=== PATIENT | female | born 1945 | race Caucasian/White ===

== ENCOUNTER 2016-12-21 11:40 | Emergency (ER) | payer MEDICARE, OTHER ==
[2016-12-21] MEDS ORDERED: Sodium Chloride 0.9% 1,000 ML IV SCH (12:00)
[2016-12-21] MEDS ORDERED: Atropine 0.1 MG/ML 10 ML Syringe IVPUSH ONE (12:34)
[2016-12-21] MEDS ORDERED: Aspirin 81 MG Tab.Chew PO ONE (12:40)
[2016-12-21 12:43] VITALS: BP 79/48
--- NOTE | 2016-12-22 09:53 | ER ---
DATE SEEN: 12/21/2016 CHIEF COMPLAINT: Chest pain. HISTORY OF PRESENT ILLNESS: She denies having chest pain. She had some arm pain, left arm discomfort. Onset today. She had pressure in her arm this afternoon. No unusual activity, lifting, or exertion. Denies shortness of breath, chest heaviness, chest pressure, or chest ache. No neck pain, jaw pain back pain, or interscapular pain. She denies other associated symptoms, gastrointestinal reflux, hiatus hernia, gallbladder disease, fatty food ingestion, shortness of breath, cough, dyspnea on exertion, neck pain, arm pain, back pain, herpes, fevers, chills, or productive cough. ALLERGIES: Aspirin. MEDICATIONS: 1. Trazodone. 2. Systane Balance in the eyes. 3. Oxybutynin 5 mg daily. 4. Omeprazole 20 mg daily. 5. Multivitamin. 6. Metoclopramide q.i.d. p.r.n. 7. Meloxicam 7.5 mg daily. 8. Fluticasone propionate nasal spray for seasonal allergies. 9. Calcium carbonate with vitamin D. 10.Acetaminophen. REVIEW OF SYSTEMS: Negative except for noted above. Medication in the past, she has used Prilosec, and uses every other day, not daily. Other review of systems 2, para 2-0-0-2, and edentulous. No history of diabetes, heart disease, high blood pressure, asthma, or thyroid disease. PAST SURGICAL HISTORY: Cataracts, cholecystectomy, tubal ligation, surgery first hallux, bilateral total knee arthroplasty. PHYSICAL EXAMINATION: VITAL SIGNS: Blood pressure 79/48, heart rate 48 to 56, respirations 16, oxygen saturation 100%. HEENT: Patient is edentulous. Has angular orofacial musculature secondary to being edentulous. TMs negative. Pharynx, moist mucosa. NECK: Supple. No thyromegaly. No masses. No bruits in neck. No transmitted murmurs in the chest to the neck. LUNGS: Clear to auscultation without rales, rhonchi, or wheezes. HEART: S1, S2. No irregular rate or rhythm. ABDOMEN: Soft. No guarding. No abdominal discomfort. Increased abdominal girth noted. Moderate distention. MUSCULOSKELETAL: No tenderness to the legs. Range of motion is decreased in hips and knees (she had previous bilateral total knee arthroplasty.) NEURO: Deep tendon reflexes absent in upper and lower extremities. Cranial nerves 2 through 12 intact. Oriented x3. Strength intact. Gait appropriate. Thought content is appropriate. Mental status is normal. EKG: Bradycardia. Heart rate 54, and poor R-wave progression across the anterior precordials. No ST elevation. Troponin is less than 0.01 x2, two hours apart. LABORATORY STUDIES: Hemoglobin 12.5, white count 5700, PMNs 52, lymphocytes 39 and D-dimer trace elevated, but not abnormal for age (425) and complete metabolic panel is normal. Troponin less than 0.01 x2, two hours apart. Alkaline phosphatase normal. Urinalysis is normal with a few bacteria and few squamous cells. IMAGING: Chest x-ray is negative except for mild cardiac enlargement - borderline cardiomegaly. No infiltrate noted. There is a lobular heart. Has less angular features. ASSESSMENT: 1. Chest pain, etiology indeterminate. 2. Nonspecific chest pain. 3. No evidence for myocardial infarction or pneumonia or infection. The patient has irregular heartbeat and etiology indeterminate. 4. Transient low blood pressure, she received a liter of fluid. Pressures came back nicely to 116/71-75. She was dehydrated. 5. Obesity. 6. Edentulous. 7. Status post tubal ligation, cholecystectomy, bilateral cataract surgery, hallux surgery, joint abnormality surgery, and bilateral total knee arthroplasties. PLAN: The patient is dismissed to follow up with doctor in a week. She is advised to walk, continue walking and return to the ED earlier if has more chest discomfort or pain. /[id number] PRAKASH/ELENA ACEVES
--- NOTE | 2016-12-25 14:03 | CR ---
INDICATION: Bradycardia, lightheaded. CHEST: An AP upright view of the chest was obtained portable, 12/21/2016, and compared with 02/15/2013 PA view and an AP view from 07/08/2012. The heart size is unchanged from 07/08/2012. The aorta is somewhat tortuous with some minimal calcification suggested in the arch area. Overlying EKG leads are noted. No active infiltrate or effusion was identified. IMPRESSION: 1. Stable chest. No acute process. 2. Probable ASHD with mild cardiomegaly. MTDD
== END 2016-12-21 15:25 | disposition home or self-care (01) ==
LOC: FB.ED 11:40
DX: R07.9 Chest pain, unspecified (principal); K06.9 Disorder of gingiva and edentulous alveolar ridge, unspecified; R03.1 Nonspecific low blood-pressure reading; E66.9 Obesity, unspecified; Z68.29 Body mass index [BMI] 29.0-29.9, adult; Z90.49 Acquired absence of other specified parts of digestive tract; Z98.51 Tubal ligation status; Z98.49 Cataract extraction status, unspecified eye; Z96.651 Presence of right artificial knee joint; Z96.652 Presence of left artificial knee joint; Z98.890 Other specified postprocedural states; Z88.8 Allergy status to other drugs, medicaments and biological substances; Z79.899 Other long term (current) drug therapy
CPT/HCPCS: 36415; 71010; 80053; 81001; 83880; 84484; 85025; 85379; 85610; 93005; 96361; 96374; 99282; 99285; A9270; J0461; J7040

== ENCOUNTER 2017-01-24 20:21 | Emergency (ER) | payer MEDICARE, OTHER ==
--- NOTE | 2017-01-24 20:31 | EDM.PDOC ---
ED HPI GENERAL MEDICAL PROBLEM - General Stated Complaint: WEAKNESS Time Seen by Provider: 01/24/17 20:21 Source of Information: Reports: Patient, EMS History Limitations: Reports: No Limitations - History of Present Illness INITIAL COMMENTS - FREE TEXT/NARRATIVE: 71 y.o.w.f. with a history of a fib, on Coumadin, came to the ed by EMS due to left arm numbness and pain for a few seconds, starting while working outside. Pt denied c/p dizziness or lightheadedness or any other acute medical issues. BP was 111/87, puls was 112 Irr/irr. Pt had a full cardiac W/U in [place] 3 days ago including cardiac angiogram, Echocardiogram etc which were all neg, as per pt. Onset: Today Onset Date: 01/24/17 Onset Time: 14:00 Duration: Hour(s): Location: Reports: Upper Extremity, Left Quality: Reports: Dull, Other (numb) Improves with: Reports: None Worsens with: Reports: None Context: Reports: Other (h/o a fib) Associated Symptoms: Reports: No Other Symptoms - Related Data Allergies Allergy/AdvReac Type Severity Reaction Status Date / Time aspirin AdvReac Stomach Verified 01/25/17 00:47 Upset Home Meds: Home Meds Calcium Carbonate/Vitamin D3 [Calcium 600 + Vit D 400 Softgl] 600 mg PO BID [History] Fluticasone Propionate 50 mcg NS DAILY 03/31/13 [History] Meloxicam [Meloxicam] 7.5 ampule PO DAILY 03/31/13 [History] Metoclopramide [Reglan] 10 mg PO QID 03/31/13 [History] Multivitamin [Multi Vitamin Daily] 1 each PO DAILY 03/31/13 [History] Omeprazole [Omeprazole] 20 mg PO DAILY PRN 03/31/13 [History] Oxybutynin Chloride [Ditropan Xl] 5 mg PO DAILY 03/31/13 [History] Propylene Glycol [Systane Balance] 1 drop OP BID PRN 03/31/13 [History] Acetaminophen [Tylenol Extra Strength] 1,000 mg PO Q6H PRN 04/27/14 [History] traZODone 100 mg PO BEDTIME 04/27/14 [History] Metoprolol Succinate 25 mg PO DAILY 01/25/17 [History] Warfarin [Coumadin] 5 mg PO DAILY 01/25/17 [History] Past Medical History HEENT History: Reports: Impaired Vision Gastrointestinal History: Reports: Cholelithiasis Genitourinary History: Reports: Urinary Incontinence Other Genitourinary History: takes medication for dribbling RN ONCOLOGY History: Reports: Musculoskeletal History: Reports: Arthritis - Past Surgical History HEENT Surgical History: Reports: Cataract Surgery, Other (See Below) Other HEENT Surgeries/Procedures: bilateral cataracts surgery GI Surgical History: Reports: Cholecystectomy Female Surgical History: Reports: Tubal Ligation Musculoskeletal Surgical History: Reports: Knee Replacement, Other (See Below) Other Musculoskeletal Surgeries/Procedures:: bilateral TKA - one in 08/16, one in 05/16 Social & Family History - Tobacco Use Smoking Status *Q: Never Smoker Second Hand Smoke Exposure: No - Caffeine Use Caffeine Use: Reports: Coffee - Recreational Drug Use Recreational Drug Use: No Drug Use in Last 12 Months: No ED ROS GENERAL - Review of Systems Review Of Systems: See Below Constitutional: Reports: No Symptoms HEENT: Reports: No Symptoms Respiratory: Reports: No Symptoms Cardiovascular: Reports: No Symptoms Endocrine: Reports: No Symptoms GI/Abdominal: Reports: No Symptoms : Reports: No Symptoms Musculoskeletal: Reports: Arm Pain (numbness for 3 sec) Skin: Reports: No Symptoms Neurological: Reports: No Symptoms Psychiatric: Reports: No Symptoms Hematologic/Lymphatic: Reports: No Symptoms Immunologic: Reports: No Symptoms ED EXAM, GENERAL - Physical Exam Exam: See Below Exam Limited By: No Limitations General Appearance: Alert, WD/WN, No Apparent Distress Eye Exam: Bilateral Eye: Normal Inspection Ears: Normal External Exam Ear Exam: Bilateral Ear: Auricle Normal Nose: Normal Inspection, Normal Mucosa Throat/Mouth: Normal Inspection, Normal Lips Head: Atraumatic, Normocephalic Neck: Normal Inspection, Supple, Non-Tender Respiratory/Chest: No Respiratory Distress, Lungs Clear, Normal Breath Sounds Cardiovascular: Normal Peripheral Pulses, Regular Rate, Rhythm, No Edema Peripheral Pulses: 1+: Radial (L), Radial (R) GI/Abdominal: Normal Bowel Sounds, Soft, Non-Tender (Female) Exam: Deferred Rectal (Female) Exam: Deferred Back Exam: Normal Inspection, Full Range of Motion Extremities: Normal Inspection, Normal Range of Motion, Non-Tender, No Pedal Edema, Normal Capillary Refill Neurological: Alert, Oriented, CN II-XII Intact, Normal Cognition, Normal Gait Psychiatric: Normal Affect, Normal Mood Skin Exam: Warm, Dry, Intact Lymphatic: No Adenopathy EKG INTERPRETATION EKG Date: 01/24/17 Time: 20:30 Rhythm: A-Fib Rate (Beats/Min): 112 [place]: LAD-Left [place] Deviation P-Wave: Absent QRS: Normal ST-T: Normal QT: Normal Comparison: NA - No Prior EKG Course - Vital Signs Text/Narrative:: 71 y.o.w.f. with a history of a fib, on Coumadin, came to the ed by EMS due to left arm numbness and pain for a few seconds, starting while working outside. Pt denied c/p dizziness or lightheadedness or any other acute medical issues. BP was 111/87, puls was 112 Irr/irr. Pt had a full cardiac W/U in [place] 3 days ago including cardiac angiogram, Echocardiogram etc which were all neg, as per pt. PE: WNWD WF NAD, numbness subsided Labs: INR 3.72 CBC Nl BUN/Cr ratio elevated Troponin 0.01 imaging: CXR NAD, official report is pending Impression: atypical CP, dehydration, A fib with RVR, Hypertherapeutic INR Reexam: Improved, pt was pain free, no numbness in her usual state of health, requesting to be discharged. HR was 99 -101 on D/C Plan: D/C with instructions, hold coumadin for 1 day,recheck the INR in 3 days. Last Recorded V/S: Last Vital Signs Temp Pulse 113 H 01/24/17 21:16 Resp 12 01/24/17 22:30 BP 126/71 01/24/17 22:30 Pulse Ox 98 01/24/17 22:30 - Orders/Labs/Meds Labs: Laboratory Tests 01/24/17 01/24/17 01/24/17 Range/Units 20:26 20:35 20:35 WBC 6.6 (4.5-12.0) X10-3/uL RBC 4.32 (3.23-5.20) x10(6)uL Hgb 13.0 (11.5-15.5) g/dL Hct 38.2 (30.0-51.3) % MCV 88.5 (80-96) fL MCH 30.1 (27.7-33.6) pg MCHC 34.1 (32.2-35.4) g/dL RDW 13.5 (11.5-15.5) % Plt Count 263 (125-369) X10(3)uL MPV 7.8 (7.4-10.4) fL Neut % (Auto) 46.2 (46-82) % Lymph % (Auto) 41.8 H (13-37) % [place] % (Auto) 9.3 (4-12) % Eos % (Auto) 2 (1.0-5.0) % Baso % (Auto) 1 (0-2) % Neut # (Auto) 3.0 (1.6-8.3) # Lymph # (Auto) 2.8 (0.6-5.0) # [place] # (Auto) 0.6 (0.0-1.3) # Eos # (Auto) 0.1 (0.0-0.8) # Baso # (Auto) 0.1 (0.0-0.2) # PT (8.7-11.1) INR (0.89-1.13) D-Dimer, Quantitative (100-400) ng/mL Sodium 138 (135-145) mmol/L Potassium 3.5 (3.5-5.3) mmol/L Chloride 107 (100-110) mmol/L Carbon Dioxide 21 L (23-29) mmol/L BUN 21 (8-23) mg/dL Creatinine 0.9 (0.6-1.3) mg/dL Est Cr Clr Drug Dosing TNP Estimated GFR (MDRD) > 60 (>60) BUN/Creatinine Ratio 23.3 H (9-20) Glucose 101 (80-116) mg/dL Calcium 9.3 (8.6-10.2) mg/dL Troponin I (0.02-0.06) NG/ML B-Natriuretic Peptide (0-100) pg/mL Urine Color Yellow (YELLOW) Urine Appearance Clear (CLEAR) Urine pH 8.0 H (5.0-6.5) Ur Specific [place] 1.010 (1.010-1.025) Urine Protein Negative (NEGATIVE) mg/dL Urine Glucose (UA) Normal (NEGATIVE) mg/dL Urine Ketones 15 H (NEGATIVE) mg/dL Urine Occult Blood Negative (NEGATIVE) Urine Nitrite Negative (NEGATIVE) Urine Bilirubin Negative (NEGATIVE) Urine Urobilinogen Normal (NEGATIVE) mg/dL Ur Leukocyte Esterase Negative (NEGATIVE) Urine RBC 0-5 (0) Urine WBC Not seen (0) Ur Squamous Epith Cells Not seen (NS,R,O) Urine Bacteria Not seen (NS) 01/24/17 01/24/17 01/24/17 Range/Units 20:35 20:35 20:35 WBC (4.5-12.0) X10-3/uL RBC (3.23-5.20) x10(6)uL Hgb (11.5-15.5) g/dL Hct (30.0-51.3) % MCV (80-96) fL MCH (27.7-33.6) pg MCHC (32.2-35.4) g/dL RDW (11.5-15.5) % Plt Count (125-369) X10(3)uL MPV (7.4-10.4) fL Neut % (Auto) (46-82) % Lymph % (Auto) (13-37) % [place] % (Auto) (4-12) % Eos % (Auto) (1.0-5.0) % Baso % (Auto) (0-2) % Neut # (Auto) (1.6-8.3) # Lymph # (Auto) (0.6-5.0) # [place] # (Auto) (0.0-1.3) # Eos # (Auto) (0.0-0.8) # Baso # (Auto) (0.0-0.2) # PT 38.6 H* (8.7-11.1) INR 3.72 H (0.89-1.13) D-Dimer, Quantitative (100-400) ng/mL Sodium (135-145) mmol/L Potassium (3.5-5.3) mmol/L Chloride (100-110) mmol/L Carbon Dioxide (23-29) mmol/L BUN (8-23) mg/dL Creatinine (0.6-1.3) mg/dL Est Cr Clr Drug Dosing Estimated GFR (MDRD) (>60) BUN/Creatinine Ratio (9-20) Glucose (80-116) mg/dL Calcium (8.6-10.2) mg/dL Troponin I < 0.01 L (0.02-0.06) NG/ML B-Natriuretic Peptide 108 H (0-100) pg/mL Urine Color (YELLOW) Urine Appearance (CLEAR) Urine pH (5.0-6.5) Ur Specific [place] (1.010-1.025) Urine Protein (NEGATIVE) mg/dL Urine Glucose (UA) (NEGATIVE) mg/dL Urine Ketones (NEGATIVE) mg/dL Urine Occult Blood (NEGATIVE) Urine Nitrite (NEGATIVE) Urine Bilirubin (NEGATIVE) Urine Urobilinogen (NEGATIVE) mg/dL Ur Leukocyte Esterase (NEGATIVE) Urine RBC (0) Urine WBC (0) Ur Squamous Epith Cells (NS,R,O) Urine Bacteria (NS) 01/24/17 Range/Units 20:40 WBC (4.5-12.0) X10-3/uL RBC (3.23-5.20) x10(6)uL Hgb (11.5-15.5) g/dL Hct (30.0-51.3) % MCV (80-96) fL MCH (27.7-33.6) pg MCHC (32.2-35.4) g/dL RDW (11.5-15.5) % Plt Count (125-369) X10(3)uL MPV (7.4-10.4) fL Neut % (Auto) (46-82) % Lymph % (Auto) (13-37) % [place] % (Auto) (4-12) % Eos % (Auto) (1.0-5.0) % Baso % (Auto) (0-2) % Neut # (Auto) (1.6-8.3) # Lymph # (Auto) (0.6-5.0) # [place] # (Auto) (0.0-1.3) # Eos # (Auto) (0.0-0.8) # Baso # (Auto) (0.0-0.2) # PT (8.7-11.1) INR (0.89-1.13) D-Dimer, Quantitative 143 (100-400) ng/mL Sodium (135-145) mmol/L Potassium (3.5-5.3) mmol/L Chloride (100-110) mmol/L Carbon Dioxide (23-29) mmol/L BUN (8-23) mg/dL Creatinine (0.6-1.3) mg/dL Est Cr Clr Drug Dosing Estimated GFR (MDRD) (>60) BUN/Creatinine Ratio (9-20) Glucose (80-116) mg/dL Calcium (8.6-10.2) mg/dL Troponin I (0.02-0.06) NG/ML B-Natriuretic Peptide (0-100) pg/mL Urine Color (YELLOW) Urine Appearance (CLEAR) Urine pH (5.0-6.5) Ur Specific [place] (1.010-1.025) Urine Protein (NEGATIVE) mg/dL Urine Glucose (UA) (NEGATIVE) mg/dL Urine Ketones (NEGATIVE) mg/dL Urine Occult Blood (NEGATIVE) Urine Nitrite (NEGATIVE) Urine Bilirubin (NEGATIVE) Urine Urobilinogen (NEGATIVE) mg/dL Ur Leukocyte Esterase (NEGATIVE) Urine RBC (0) Urine WBC (0) Ur Squamous Epith Cells (NS,R,O) Urine Bacteria (NS) Meds: Medications Discontinued Medications Generic Name Dose Route Start Last Admin Trade Name Freq PRN Reason Stop Dose Admin Sodium Chloride 1,000 mls @ 999 mls/hr 01/24/17 20:45 01/24/17 21:00 Normal Saline IV 01/24/17 21:45 999 mls/hr .BOLUS ONE Administration Departure - Departure Time of Disposition: 21:45 Disposition: Home, Self-Care 01 Condition: Good Clinical Impression: Atypical chest pain, Dehydration, Elevated INR (international normalized ratio) Instructions: Dehydration, Adult Referrals: Debbie Weber NP [Primary Care Provider] - Forms: ED Department Discharge Additional Instructions: Please hold Coumadin for one day. Please increase water intake, please follow up, coem back if your symptoms get worse acutely
[2017-01-24] MEDS ORDERED: Sodium Chloride 0.9% 1,000 ML IV ONE (20:45)
[2017-01-24 22:51] VITALS: BP 126/71
--- NOTE | 2017-01-30 09:40 | CR ---
INDICATION: Numbness left arm. CHEST: Portable AP upright view of the chest, 01/24/2017, was compared with and 02/15/2013, revealing stable prominent heart size, which is likely at the upper limits of normal in size or slightly enlarged. The aorta is tortuous with minimal calcification suggested in the arch. Overlying EKG leads are noted. The lungs appear to be slightly hyperaerated, suggesting the possibility of COPD. An active infiltrate or effusion was not identified. IMPRESSION: Fairly stable appearance of the chest with no definite acute process. Findings are as noted above. MTDD
== END 2017-01-24 22:15 | disposition home or self-care (01) ==
LOC: FB.ED 20:21
DX: R07.89 Other chest pain (principal); E86.0 Dehydration; R79.1 Abnormal coagulation profile; H54.7 Unspecified visual loss; M19.90 Unspecified osteoarthritis, unspecified site; Z98.49 Cataract extraction status, unspecified eye; Z88.8 Allergy status to other drugs, medicaments and biological substances; Z79.899 Other long term (current) drug therapy
CPT/HCPCS: 36415; 71010; 80048; 81001; 83880; 84484; 85025; 85379; 85610; 93005; 99283; 99285; J7040

== ENCOUNTER 2019-10-22 10:08 | Emergency (ER) | payer MEDICARE, OTHER ==
[2019-10-22] MEDS: Metoprolol Succinate 25 MG Tab.ER PO ONE (10:35)
[2019-10-22 10:38] VITALS: BP 100/62; PULSE 93
[2019-10-22] MEDS: Sodium Chloride 0.9% 10 ML Syringe FLUSH PRN (11:20)
[2019-10-22] MEDS: Sodium Chloride 0.9% 1,000 ML IV SCH (11:20)
[2019-10-22] MEDS: Diltiazem 25 MG/5 ML SDV IVPUSH ONE (11:32)
--- NOTE | 2019-10-22 12:19 | EDM.PDOC ---
ED HPI GENERAL MEDICAL PROBLEM - General Chief Complaint: General Stated Complaint: UPPER BACK DISCOMFORT Time Seen by Provider: 10/22/19 10:15 Source of Information: Reports: Patient History Limitations: Reports: No Limitations - History of Present Illness INITIAL COMMENTS - FREE TEXT/NARRATIVE: Patient presented to the Ed because of bilateral shoulder pain. She denies having any chest pain or palpitations. There is no dyspnea,nausea,vomiting. 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 - Related Data Allergies Allergy/AdvReac Type Severity Reaction Status Date / Time aspirin AdvReac Stomach Verified 10/22/19 10:15 Upset Home Meds: Home Meds Multivitamin [Multi Vitamin Daily] 1 each PO DAILY 03/31/13 [History] Omeprazole 20 mg PO DAILY 03/31/13 [History] Oxybutynin Chloride [Ditropan Xl] 5 mg PO DAILY 03/31/13 [History] Acetaminophen [Tylenol Extra Strength] 1,000 mg PO Q6H PRN 04/27/14 [History] traZODone 100 mg PO BEDTIME 04/27/14 [History] Metoprolol Succinate 12.5 mg PO BID 01/25/17 [History] Metoprolol Succinate [Toprol XL] 12.5 mg PO DAILY PRN 10/22/19 [History] Warfarin Sodium [Jantoven] 5 mg PO DAILY 10/22/19 [History] Past Medical History HEENT History: Reports: Impaired Vision Cardiovascular History: Reports: Afib, Heart Murmur Gastrointestinal History: Reports: Cholelithiasis Genitourinary History: Reports: Urinary Incontinence Other Genitourinary History: takes medication for dribbling [employer] History: Reports: Musculoskeletal History: Reports: Arthritis - Past Surgical History HEENT Surgical History: Reports: Cataract Surgery, Other (See Below) Other HEENT Surgeries/Procedures: bilateral cataracts surgery GI Surgical History: Reports: Cholecystectomy Female Surgical History: Reports: Tubal Ligation Musculoskeletal Surgical History: Reports: Knee Replacement, Other (See Below) Other Musculoskeletal Surgeries/Procedures:: bilateral TKA - one in 08/16, one in 05/16, toe surgery Social & Family History - Family History Family Medical History: Noncontributory - Tobacco Use Smoking Status *Q: Never Smoker Second Hand Smoke Exposure: No - Caffeine Use Caffeine Use: Reports: Coffee - Recreational Drug Use Recreational Drug Use: No ED ROS GENERAL - Review of Systems Review Of Systems: See Below Constitutional: Reports: No Symptoms HEENT: Reports: No Symptoms Respiratory: Reports: No Symptoms Cardiovascular: Reports: No Symptoms Endocrine: Reports: No Symptoms GI/Abdominal: Reports: No Symptoms : Reports: No Symptoms Musculoskeletal: Reports: No Symptoms Skin: Reports: No Symptoms Neurological: Reports: No Symptoms Psychiatric: Reports: No Symptoms Hematologic/Lymphatic: Reports: No Symptoms ED EXAM, GENERAL - Physical Exam Exam: See Below Exam Limited By: No Limitations General Appearance: Alert, No Apparent Distress Eye Exam: Bilateral Eye: PERRL Ears: Normal External Exam Nose: Normal Inspection, Normal Mucosa Throat/Mouth: Normal Inspection Head: Atraumatic Neck: Normal Inspection Respiratory/Chest: No Respiratory Distress Cardiovascular: No Edema, No Gallop, Tachycardia, Irregularly Irregular GI/Abdominal: Normal Bowel Sounds, Soft, Non-Tender Back Exam: Normal Inspection, Full Range of Motion Extremities: Normal Inspection, Normal Range of Motion Neurological: Alert, Oriented, CN II-XII Intact, Normal Cognition Psychiatric: Normal Affect, Normal Mood Course - Vital Signs Text/Narrative:: Labs/EKG was discussed with patient and verbalized full understanding metoprolol 25 mg po x1 which didn't bring the HR down cardizem 10 mg IV and her HR upon discharge was 70 and asymptomatic Last Recorded V/S: Last Vital Signs Temp 36.6 C 10/22/19 10:09 Pulse 93 10/22/19 10:35 Resp 16 10/22/19 10:09 BP 100/62 10/22/19 10:35 Pulse Ox 97 10/22/19 10:09 - Orders/Labs/Meds Labs: Laboratory Tests 10/22/19 10/22/19 10/22/19 Range/Units 10:25 10:25 10:25 WBC 6.8 (4.5-12.0) X10-3/uL RBC 4.19 (3.23-5.20) x10(6)uL Hgb 13.0 (11.5-15.5) g/dL Hct 38.3 (30.0-51.3) % MCV 91.4 (80-96) fL MCH 30.9 (27.7-33.6) pg MCHC 33.8 (32.2-35.4) g/dL RDW 14.1 (11.5-15.5) % Plt Count 228 (125-369) X10(3)uL MPV 7.3 L (7.4-10.4) fL Neut % (Auto) 63.3 (46-82) % Lymph % (Auto) 25.2 (13-37) % [place] % (Auto) 9.1 (4-12) % Eos % (Auto) 1 (1.0-5.0) % Baso % (Auto) 1 (0-2) % Neut # (Auto) 4.2 (1.6-8.3) # Lymph # (Auto) 1.7 (0.6-5.0) # [place] # (Auto) 0.6 (0.0-1.3) # Eos # (Auto) 0.1 (0.0-0.8) # Baso # (Auto) 0.1 (0.0-0.2) # PT 23.7 H (9.0-11.1) sec INR 2.31 H (1.00-1.24) Sodium 143 (135-145) mmol/L Potassium 4.2 (3.5-5.3) mmol/L Chloride 106 (100-110) mmol/L Carbon Dioxide 30 (21-32) mmol/L BUN 13 (7-18) mg/dL Creatinine 1.1 H (0.55-1.02) mg/dL Est Cr Clr Drug Dosing 39.33 mL/min Estimated GFR (MDRD) 49 L (>60) BUN/Creatinine Ratio 11.8 (9-20) Glucose 94 (80-116) mg/dL Calcium 8.2 L (8.6-10.2) mg/dL Total Bilirubin 0.5 (0.1-1.3) mg/dL AST 22 (5-25) IU/L ALT 18 (12-36) U/L Alkaline Phosphatase 55 L (56-112) IU/L Troponin I (4.0-60.3) pg/mL Total Protein 6.3 (6.0-8.0) g/dL Albumin 3.2 (3.2-4.6) g/dL Globulin 3.1 g/dL Albumin/Globulin Ratio 1.0 04/22/20 Range/Units 10:25 WBC (4.5-12.0) X10-3/uL RBC (3.23-5.20) x10(6)uL Hgb (11.5-15.5) g/dL Hct (30.0-51.3) % MCV (80-96) fL MCH (27.7-33.6) pg MCHC (32.2-35.4) g/dL RDW (11.5-15.5) % Plt Count (125-369) X10(3)uL MPV (7.4-10.4) fL Neut % (Auto) (46-82) % Lymph % (Auto) (13-37) % [place] % (Auto) (4-12) % Eos % (Auto) (1.0-5.0) % Baso % (Auto) (0-2) % Neut # (Auto) (1.6-8.3) # Lymph # (Auto) (0.6-5.0) # [place] # (Auto) (0.0-1.3) # Eos # (Auto) (0.0-0.8) # Baso # (Auto) (0.0-0.2) # PT (9.0-11.1) sec INR (1.00-1.24) Sodium (135-145) mmol/L Potassium (3.5-5.3) mmol/L Chloride (100-110) mmol/L Carbon Dioxide (21-32) mmol/L BUN (7-18) mg/dL Creatinine (0.55-1.02) mg/dL Est Cr Clr Drug Dosing mL/min Estimated GFR (MDRD) (>60) BUN/Creatinine Ratio (9-20) Glucose (80-116) mg/dL Calcium (8.6-10.2) mg/dL Total Bilirubin (0.1-1.3) mg/dL AST (5-25) IU/L ALT (12-36) U/L Alkaline Phosphatase (56-112) IU/L Troponin I 6.9 (4.0-60.3) pg/mL Total Protein (6.0-8.0) g/dL Albumin (3.2-4.6) g/dL Globulin g/dL Albumin/Globulin Ratio Meds: Medications Discontinued Medications Generic Name Dose Route Start Last Admin Trade Name Freq PRN Reason Stop Dose Admin Diltiazem HCl 10 mg 10/22/19 11:17 10/22/19 11:32 Diltiazem IVPUSH 10/22/19 11:18 10 mg ONETIME ONE Administration Sodium Chloride 1,000 mls @ 999 mls/hr 10/22/19 11:30 10/22/19 11:20 Normal Saline IV 999 mls/hr ASDIRECTED PAIGE Administration Metoprolol Succinate 25 mg 10/22/19 10:18 10/22/19 10:35 Toprol Xl PO 10/22/19 10:19 25 mg ONETIME ONE Administration Sodium Chloride 10 ml 10/22/19 11:03 10/22/19 11:20 Saline Flush FLUSH 10 ml ASDIRECTED PRN Administration Keep Vein Open Departure - Departure Time of Disposition: 12:30 Disposition: Home, Self-Care 01 Condition: Good Clinical Impression: Chronic a-fib - Discharge Information Instructions: Atrial Fibrillation, [id number] Referrals: Debbie Weber NP [Primary Care Provider] - Forms: ED Department Discharge Additional Instructions: Please read discharge instructions on chronic AFIB Continue your metoprolol succinate as prescribed If your heart rate is equal or more than 100 take metorpolol 50 mg instead of 25 mg then recheck your hear rate after one hour. Rest for the day Follow up with your doctor this week Sepsis Event Note - Evaluation Sepsis Screening Result: No Definite Risk - Focused Exam Date Exam was Performed: 10/23/19 Time Exam was Performed: 12:47
== END 2019-10-22 12:35 | disposition home or self-care (01) ==
LOC: FB.ED 10:08
DX: I48.20 Chronic atrial fibrillation, unspecified (principal); Z88.6 Allergy status to analgesic agent; Z79.899 Other long term (current) drug therapy; Z79.01 Long term (current) use of anticoagulants
CPT/HCPCS: 36415; 80053; 84484; 85025; 85610; 93005; 96374; 99283; A9270; J3490; J7030

== ENCOUNTER 2021-09-21 10:22 | Emergency (ER) | payer MEDICARE, OTHER ==
[2021-09-21] MEDS ORDERED: Sodium Chloride 0.9% 10 ML Syringe FLUSH PRN (10:41)
[2021-09-21] MEDS ORDERED: Diltiazem 25 MG/5 ML SDV IVPUSH STA (10:59)
[2021-09-21] MEDS ORDERED: Sodium Chloride 0.9% 1,000 ML IV SCH (11:00)
[2021-09-21] MEDS ORDERED: Heparin Sodium 5,000 Units/ML Vial IVPUSH ONE ×2 (13:17→14:00)
[2021-09-21] MEDS ORDERED: Heparin Sodium/0.45% NaCl 500 ML IV SCH (13:18)
[2021-09-21] MEDS ORDERED: Heparin Sodium/0.45% NaCl 25,000 UNITS/500 ML BAG IV SCH (13:45)
[2021-09-21 19:43] VITALS: BP 99/75; PULSE 88
== END 2021-09-21 14:23 ==
LOC: FB.ED 10:22 → SUPCPDRO 10:22 → FB.ED 14:23
DX: I48.91 Unspecified atrial fibrillation (principal); R00.2 Palpitations; R77.8 Other specified abnormalities of plasma proteins; Z88.8 Allergy status to other drugs, medicaments and biological substances; Z79.899 Other long term (current) drug therapy; Z79.01 Long term (current) use of anticoagulants
CPT/HCPCS: 36415; 80053; 83735; 83880; 84484; 85025; 85610; 85730; 93005; 93010; 96365; 96375; 99283; 99285-25; J1644; J3490; J7030; U0002